=== PATIENT | male | born 1990 | race Caucasian/White ===

== ENCOUNTER → 2018-05-02 14:01 | Outpatient (CLI) | payer BC, SELFPAY | PROVIDERS: Visit Provider Physician Assistant | DX: J02.9 Acute pharyngitis, unspecified (principal) | CPT/HCPCS: 87081 ==

== ENCOUNTER 2020-07-15 01:05 | Emergency (ER) | payer BC, SELFPAY ==
[2019-03-27 09:57] VITALS: BMI 32.3
[2020-07-15 01:06] VITALS: BP 156/96; PULSE 101; RESP 15; TEMP 36.4; O2SAT 96; BMI 35.4
--- NOTE | 2020-07-15 01:20 | ED.VIS.GEN ---
History of Present Illness Chief Complaint: Lower Extremity Injury Informant: Patient Narrative: Patient presents to the emergency department with left knee pain. Patient states that tonight he took a step planted and twisted. He heard a pop thinks he dislocated his patella. He states that it happened to him several years ago when he was seen at [place]. He has not had any surgery on the knee. Past Medical History - Allergies and Home Meds Allergies/Adverse Reactions: Allergies No Known Allergies Allergy (Unverified 07/15/20 01:09) Primary Care Physician: Darryl Barbour DPM [Primary Care Provider] - Past Medical History: None Surgical History: - - Noncontributory Smoking Status: Never smoker Review of Systems General: Denies: Chills, Fever, Sweats Eyes: Denies: Visual changes - bilaterally, Diplopia ENT: Denies: Rhinorrhea, Sore throat Cardiovascular: Denies: Chest pain, Palpitations Respiratory: Denies: Dyspnea, Cough, Dyspnea on exertion Gastrointestinal: Denies: Abdominal pain, Nausea, Vomiting, Diarrhea, Melena, Hematochezia Genitourinary: Denies: Dysuria, Hematuria, Frequency Musculoskeletal: Reports: Extremity Pain. Denies: Back pain Skin: Denies: Rash, Wounds Neurological: Denies: Headache, Weakness, Numbness Physical Exam Vital Signs/Narrative: Vital Signs Temp Pulse Resp BP Pulse Ox 07/15/20 01:06 97.5 F L 101 H 15 156/96 H 96 Inital Vital Signs reviewed: Yes General: Well nourished, Well developed, No Acute Distress Head: Normocephalic, Atraumatic Eyes: Perrl, EOMI ENT: Moist mucous membranes, No rhinorrhea Neck: Supple, Nontender Cardiovascular: Regular rate, Regular rhythm, No murmurs Respiratory: No distress, CTA bilaterally, Chest nontender Abdomen: Soft, Nontender, Nondistended, Normal bowel sounds Back: Nontender, Normal Inspection Extremities: No edema, - - There is no palpable joint effusion. He has medial joint line tenderness. Ligaments appear stable within the confines of him guarding. There is some mild diffuse swelling of the knee. Extensor mechanism is intact. Skin: Normal color, No rash Neurological: Alert, Oriented x3, Cranial nerves II-XII grossly intact, Normal Strength, Normal Sensation Psychological: Normal affect, Normal Mood Diagnostic/Tx/Re-eval Clinical Impression(s) from Imaging Studies Knee X-Ray 07/15/20 01:40 IMPRESSION: No visualized fracture. Trace joint effusion. Mild soft tissue edema on the border of the right patellar retinaculum. Cannot exclude ligamentous or soft tissue injury. An MRI would be suggested as the study of choice to evaluate soft tissue injury. Electronically Signed: Chuyita Stone MD at 2:00 EDT Tel , Service support , - Medical Decision Making Patient's x-rays reviewed with him. We talked about knee immobilizer versus [place] wrap. He would prefer more of an Refugio wrap. He was encouraged to follow-up with orthopedics if he is not improving return if worsening. He declines crutches. We talked about knee sprain versus ligamentous versus meniscal injuries. ED Disposition - Plan for ED Patient: Disposition: Home or Assisted Living Diagnosis: Left knee sprain Instructions: ED Sprain Ankle Referrals: Savannah Pandey DO [STAFF PHYSICIAN] - (call for orthopedic follow up)
[2020-07-15] MEDS: Ibuprofen 400 MG Tablet 800 MG PO (01:38)
--- NOTE | 2020-07-15 01:40 | RAD_ITS ---
STUDY: X-RAY - LEFT KNEE REASON FOR EXAM: Male, 30 years old. LEFT KNEE PAIN, FELT LIKE KNEE DISLOCATED THEN POPPED BACK INTO PLACE TODAY. TECHNIQUE: 5 view(s) of the knee. The lateral view is in obliquity. COMPARISON: None. FINDINGS: Normal visualized distal femur. Normal visualized proximal tibia and fibula. Normal proximal tibiofibular articulation. Normal medial femorotibial compartment. Normal lateral femorotibial compartment. There is mild degenerative arthrosis of the patellofemoral articulation. There is a soft tissue prominence in the suprapatellar region suggesting a small volume joint effusion. There is mild soft tissue edema along the medial border of the right patella retinaculum. RAD/Knee 4 or More Views IMPRESSION: No visualized fracture. Trace joint effusion. Mild soft tissue edema on the border of the right patellar retinaculum. Cannot exclude ligamentous or soft tissue injury. An MRI would be suggested as the study of choice to evaluate soft tissue injury. Electronically Signed: Chuyita Stone MD at 2:00 EDT Tel , Service support ,
[2020-07-15] MEDS: Ketorolac 60 MG/2 ML Vial IM (02:09)
[2020-07-15 02:16] VITALS: BP 135/67; PULSE 92; RESP 15; O2SAT 95
== END 2020-07-15 02:20 | disposition home or self-care (01) ==
PROVIDERS: Emergency Provider Emergency Medicine; PCP Podiatrist
DX: S83.92XA Sprain of unspecified site of left knee, initial encounter (principal); X50.1XXA Overexertion from prolonged static or awkward postures, initial encounter; Y93.01 Activity, walking, marching and hiking; Y92.89 Other specified places as the place of occurrence of the external cause; Y99.8 Other external cause status
CPT/HCPCS: 73564; 96372; 99282

== ENCOUNTER → 2020-08-02 | Outpatient (CLI) | payer BC, SELFPAY ==
[2020-07-23 15:03] VITALS: BMI 34.0
--- NOTE | 2020-08-02 16:19 | MRI_ITS ---
STUDY: MRI LEFT KNEE REASON FOR EXAM: Male, 30 years old. Medial left knee pain 2 weeks status post injury. TECHNIQUE: Standardized fat and water weighted pulse sequences were obtained in all 3 orthogonal planes. COMPARISON: X-ray 07/15/2020. FINDINGS: Normal medial meniscus. Normal hyaline cartilage of the medial femorotibial compartment. Periligamentous edema around the medial collateral ligament is consistent with low-grade injury. Normal distal semimembranosus, gracilis and semitendinosus tendons. Normal lateral meniscus. Normal hyaline cartilage of the lateral femorotibial compartment. Normal proximal tibiofibular articulation. Normal lateral collateral (fibular) ligament. Normal popliteus tendon. Normal biceps femoris tendon. Normal anterior cruciate ligament (ACL). Normal posterior cruciate ligament (PCL). Mild lateral patellar subluxation and tilt. Bone contusion in the medial patella at the insertion of the medial retinaculum. Focal cortical disruption of the medial patella. Normal hyaline cartilage of the patellofemoral compartment. Trace edema in the medial retinaculum at the patellar insertion, consistent with low-grade injury. Normal quadriceps tendon. Normal patellar tendon. Bone contusions in the lateral femoral condyle and medial patella. Small joint effusion. The soft tissues are unremarkable. MRI/Lower Ext Joint Only (Routine) IMPRESSION: 1. Bone contusions in the lateral femoral condyle and medial patella are consistent with transient patellar dislocation. Cortical chip fracture of the medial patella is noted. 2. Low-grade injury of the medial retinaculum. 3. Low-grade MCL sprain. 4. Small joint effusion. 5. Mild lateral patellar subluxation and tilt. Electronically Signed: Jade Bello MD at 22:55 EDT Tel , Service support ,
== END | disposition home or self-care (01) ==
PROVIDERS: Referring Provider Physician Assistant; Visit Provider Physician Assistant
DX: M25.562 Pain in left knee (principal)
CPT/HCPCS: 73721